=== PATIENT | female | born 1995 | race Caucasian/White ===

== ENCOUNTER 2023-07-12 15:15 | Emergency (ER) | payer BC ==
[~2023-07-12] VITALS: Ht 154.9 cm; Wt 70.3 kg
[2023-07-12 15:23] VITALS: BP_SYST 149; PULSE 113; RESP 20; TEMP 98.3; O2SAT 98
[2023-07-12 16:36] LABS: BASOPHILS # (AUTO) 0.1 K/uL (0.0-0.2); BASOPHILS % (AUTO) 0.7 % (0.0-2.0); EOSINOPHILS # (AUTO) 0.1 K/uL (0.0-0.4); EOSINOPHILS % (AUTO) 1.1 % (0.0-4.0); HEMATOCRIT 39.2 % (36-48); HEMOGLOBIN 13.6 g/dL (12.0-16.0); LYMPHOCYTES # (AUTO) 3.6 K/uL (1.0-5.5); LYMPHOCYTES % (AUTO) 30.4 % (20.5-51.5); MEAN CORPUSCULAR HEMOGLOBIN 32 pg (27-31); MEAN CORPUSCULAR HGB CONC 35 % (32-36); MEAN CORPUSCULAR VOLUME 91 fL (79.0-98.0); MONOCYTES # (AUTO) 0.7 K/uL (0.0-1.0); MONOCYTES % (AUTO) 5.6 % (1.7-9.3); NEUTROPHILS # (AUTO) 7.4 K/uL (1.8-7.7); NEUTROPHILS % (AUTO) 62.2 % (40.0-70.0); PLATELET COUNT (AUTO) 519 K/uL (130-430); RED BLOOD CELL COUNT(AUTO) 4.32 MIL/uL (4.2-6.2); RED CELL DISTRIBUTION WIDTH 12.7 % (9.0-15.0); WHITE BLOOD COUNT (AUTO) 11.8 K/uL (4.8-10.8)
[2023-07-12 16:49] LABS: CREATININE 0.77 mg/dL (0.55-1.30)
[2023-07-12 16:51] LABS: SERUM HCG (QUALITATIVE) NEGATIVE (NEGATIVE)
[2023-07-12 17:03] LABS: ALBUMIN 4.1 g/dL (3.4-4.8); BILIRUBIN,DIRECT 0.1 mg/dL (0.0-0.3); TOTAL BILIRUBIN 0.5 mg/dL (0.0-1.0); TOTAL PROTEIN, SERUM 8.7 g/dL (6.4-8.3)
[2023-07-12 17:05] LABS: BILIRUBIN,URINE NEGATIVE (NEGATIVE); BLOOD, URINE 1+ (NEGATIVE); COLOR,URINE YELLOW (YELLOW); GLUCOSE,URINE NEGATIVE (NEGATIVE); KETONES,URINE TRACE (NEGATIVE); LEUKOCYTE ESTERASE ,URINE NEGATIVE (NEGATIVE); NITRITE, URINE NEGATIVE (NEGATIVE); PROTEIN URINE NEGATIVE (NEGATIVE); UROBILINOGEN,URINE 0.2 (0.2-1.0)
[2023-07-12 17:06] LABS: CLARITY/URINE SLIGHTLY CLOUDY (CLEAR)
[2023-07-12] MEDS ORDERED: IBUP-1969 PO (17:16)
[2023-07-12] MEDS ORDERED: NITR-85 PO (17:16)
[2023-07-12 17:19] LABS: BACTERIA,URINE FEW /HPF (None Seen); WBC,URINE 0-3 /HPF (0-3)
[2023-07-12 17:42] VITALS: BP_SYST 149; PULSE 113; RESP 20; TEMP 98.3; O2SAT 98
== END 2023-07-12 17:41 | disposition home or self-care (01) ==
LOC: SED 15:15
DX: R10.9 Unspecified abdominal pain (principal); R50.9 Fever, unspecified
CPT/HCPCS: 36415; 80048; 80076; 81000; 81001; 81015; 82150; 83605; 83690; 84703; 85025; 99283